=== PATIENT | female | born 1950 | race Caucasian/White ===

== ENCOUNTER → 2025-08-01 09:39 | Outpatient (BNVA) | payer MEDICARE, MEDICAID, SELFPAY | PROVIDERS: PCP Family Medicine; Referring Provider Family Medicine; Visit Provider Internal Medicine Pulmonary Disease | DX: J44.9 Chronic obstructive pulmonary disease, unspecified (principal); J84.10 Pulmonary fibrosis, unspecified; R04.2 Hemoptysis; Z87.891 Personal history of nicotine dependence; Z23 Encounter for immunization | CPT/HCPCS: 99205; 94618; 90471; 90653; 36415; 90684 ==

== ENCOUNTER 2025-08-01 17:52 | Outpatient (REF) | payer MEDICARE, MEDICAID, SELFPAY ==
[2025-08-01 13:10] LABS: Abs Immature Grans 0.02 10^3/uL (0.0-0.06); HCT 40.5 % (36.0-46.0); HGB 13.4 g/dL (11.2-15.7); Immature Grans % 0.5 %; MCH 33.6 pg (27.0-33.0); MCHC 33.1 % (32.0-36.0); MCV 102 fL (80-95); MPV 9.0 fL (8.0-11.0); Platelet Count 232 10^3/uL (130-400); RBC 3.99 10^6/uL (3.93-5.22); RDW 13.2 % (11.7-14.6); RDW-SD 49.1 fL; WBC 4.13 10^3/uL (4.4-10.8)
[2025-08-01 13:12] LABS: Anion Gap 9.3 mmol/L (3-11); BUN 18 mg/dL (7-18); CO2 27.7 mmol/L (21.0-32.0); Calcium 9.0 mg/dL (8.5-10.1); Chloride 103 mmol/L (98-107); Glucose 97 mg/dL (74-106); Potassium 4.9 mmol/L (3.5-5.1); Sodium 140 mmol/L (136-145)
== END 2025-08-01 17:53 | disposition home or self-care (01) ==
LOC: LBN 17:52
PROVIDERS: PCP Family Medicine; Visit Provider Internal Medicine Pulmonary Disease
DX: R04.2 Hemoptysis (principal)
CPT/HCPCS: 80048; 85025

== ENCOUNTER 2025-08-13 10:42 | Day surgery (SDC) | payer MEDICARE, MEDICAID, SELFPAY ==
[2025-08-13] VITALS (16 sets, daily range): BP systolic 101–144; BP diastolic 45–76; PULSE 67–83; RESP 16–28; TEMP 36.2–36.6; O2SAT 94–100; BMI 27.4
--- NOTE | 2025-08-13 10:59 | W.ANESPRE ---
General Info Date of Service Date Performed: 08/13/25 Height: 5 ft 2 in Weight: 68.039 kg Body Mass Index (BMI): 27.4 Surgical Procedure: Operation Date: 08/13/25 13:10 Proposed Procedure Side Surgeon p Ramon Arzate MD Meds Allergies and Home Medications Allergies Allergy/AdvReac Type Severity Reaction Status Date / Time diphenhydramine Allergy Intermediate Itching Verified 08/13/25 11:28 aspirin Allergy Unknown Other (See Verified 08/13/25 11:28 Comment) azithromycin Allergy Unknown Other (See Verified 08/13/25 11:28 Comment) cephalexin Allergy Unknown Other (See Verified 08/13/25 11:28 Comment) diclofenac Allergy Unknown Other (See Verified 08/13/25 11:28 Comment) penicillin V Allergy Unknown Other (See Verified 08/13/25 11:28 Comment) sulfamethoxazole (From Allergy Unknown Other (See Verified 08/13/25 11:28 Sulfamethoxazole-Trimethoprim) Comment) trimethoprim (From Allergy Unknown Other (See Verified 08/13/25 11:28 Sulfamethoxazole-Trimethoprim) Comment) prednisolone AdvReac Intermediate Other (See Verified 08/13/25 11:28 Comment) Home Medication Medication Instructions Recorded albuterol sulfate 90 mcg/actuation 2 puff inhalation 6XD PRN 07/25/25 aerosol inhaler (Ventolin HFA) umeclidinium 62.5 mcg-vilanterol 1 inh inhalation DAILY #60 ea 08/01/25 25 mcg/actuation powdr for inhalation (Anoro Ellipta) Current Visit Medications: Current Medications Generic Name Dose Route Start Last Admin Trade Name Freq PRN Reason Stop Dose Admin Albuterol Sulfate 3 mg 08/13/25 06:00 Albuterol 2.5 Mg/3 Ml Inh Soln Vial UPD 08/13/25 23:59 DIRECTED SEAN Ringer's Solution 1,000 mls @ 30 mls/hr 08/13/25 06:00 IV 08/13/25 23:59 [facility] IV Miscellaneous Supplies 1 each 08/13/25 06:00 Iv Access IV 08/13/25 23:59 DIRECTED SEAN Lidocaine HCl 2 ml 08/13/25 06:00 Lidocaine 2% Pres-Free 2 Ml Vial IH 08/13/25 23:59 DIRECTED [facility] Sodium Chloride 0 ml 08/13/25 06:00 Normal Saline Flush 10 Ml Syr IV 08/13/25 23:59 PRN PRN Sodium Chloride 0 ml 08/13/25 06:00 Normal Saline 10 Ml Vial IJ 08/13/25 23:59 DIRECTED PRN Sterile Water 0 ml 08/13/25 06:00 Water,Injection,Sterile 10 Ml Vial IJ 08/13/25 23:59 DIRECTED PRN PFSH Active Problems Active Problems: Problem Status Onset Code Hemoptysis Acute R04.2 Fibrotic lung diseases Acute J84.10 COPD (chronic obstructive pulmonary disease) Chronic J44.9 Screening for AAA (abdominal aortic aneurysm) Acute Z13.6 Osteoporotic compression fracture of vertebra Acute M80.88XA Encounter for lipid screening for cardiovascular disease Acute Z13.220, Z13.6 COPD exacerbation Acute J44.1 Breast cancer screening Acute Z12.39 Advanced chronic obstructive pulmonary disease Acute J44.9 Acute low back pain Acute M54.50 Medical History Medical History Tobacco user RSV infection Pneumonia Acute hypoxic respiratory failure Tobacco Smoking/Tobacco Use Status: Former Tobacco Use Passive smoking exposure: Yes Alcohol Alcohol Intake: never Substance Use Substance use: Never Substance use type: does not use Vital Signs and Lab Results Lab Results Complete Blood Count: WBC, (4.4-10.8) 4.13 10^3/uL L 08/01/25, 10:30 RBC, (3.93-5.22) 3.99 10^6/uL 08/01/25, 10:30 Hgb, (11.2-15.7) 13.4 g/dL 08/01/25, 10:30 Hct, (36.0-46.0) 40.5 % 08/01/25, 10:30 Plt Count, (130-400) 232 10^3/uL 08/01/25, 10:30 Complete Metabolic Panel: Sodium, (136-145) 140 mmol/L 08/01/25, 10:30 Potassium, (3.5-5.1) 4.9 mmol/L 08/01/25, 10:30 Chloride, (98-107) 103 mmol/L 08/01/25, 10:30 Carbon Dioxide, (21.0-32.0) 27.7 mmol/L 08/01/25, 10:30 BUN, (7-18) 18 mg/dL 08/01/25, 10:30 Creatinine, (0.55-1.02) 1.0 mg/dL 08/01/25, 10:30 Est GFR (CKD-EPI 2020), (mL/min/1.73m2) 59.49 08/01/25, 10:30 Calcium, (8.5-10.1) 9.0 mg/dL 08/01/25, 10:30 Glucose, (74-106) 97 mg/dL 08/01/25, 10:30 Anesthesia Assessment and Plan Anesthesia History Personal History: No History of Anesthesia Complications Family History: No Family History of Anesthesia Complications Exercise Tolerance Exercise Tolerance: Metabolic Equivalents<4 Pertinent Negatives Pertinent Negatives: No Symptoms of GERD (Recurrent GERD controlled with medication ) and No History of CVA/TIA (seizures a couple years ago ) Cardiac & Pulmonary Exam Cardiac Exam: Normal S1/S2 Heart Sounds Pulmonary Exam: Wheezing Present (expiratory ), No cough or Cold and Active Dry Cough (last couged up blood 2 weeks ago, a couple tablespoons ) Implantable Cardiac Device Does patient have a Pacemaker or an ICD?: No Airway Exam Known Difficult Airway: No Mallampati Class: 2 Mouth Opening: Normal (> 3cm) Thyromental Distance: Greater than 3 cm Neck Range of Motion: Full ROM Neck Circumference: Normal Teeth Condition: Removable Dentures/Plates Upper and Removable Dentures/Plates Lower ASA Classification ASA Score: ASA 3 Emergency Case?: No NPO Status NPO Status: NPO Clears >2 hours, Solids >8 hours Anesthesia Plan Resuscitation Status: Full Code Anesthesia Technique: General Anesthesia Airway Planned: LMA Monitors Used: Standard Monitors Preoperative Comments:: 75 to for bronch. Sig PMHx: COPD (albuterol, Anoro Ellipta), hemoptysis, Former smoker, no EtOH. PFTs: mild obstructive dz, no sig bronchodilator response. DLCO 40%.
[2025-08-13] MEDS: Lactated Ringers 1,000 ML 30 ML IV (11:53)
--- NOTE | 2025-08-13 12:15 | W.PM.OP ---
Operative Note Operative Note PRE-OP DIAGNOSIS: Hemoptysis POST-OP DIAGNOSIS: other (Hemoptysis, Right upper lobe endobronchial lesion) PROCEDURE: Flexible fiberoptic bronchoscopy, diagnostic SURGEON: Garrett Arzate ANESTHESIA TYPE: General LMA/ETT (Under the direction the anesthesiology team and as per anesthesia record) Refer to Anesthesia Record ESTIMATED BLOOD LOSS: 3 (mL) PATHOLOGY: other (Bronchoalveolar lavage was obtained in the [] and was sent for []. Biopsies taken: []) Procedure Description: The risks (including bleeding, respiratory failure, and pneumothorax), benefits, and alternatives of the procedure were discussed with the patient and consent was obtained. A Time Out was held and the above information confirmed. Following the induction of general anesthesia, the patient was ventilation through an 8.0 ET tube. The bronchoscope was passed through the ET tube and into the trachea. A full endobronchial examination was performed. There were no signs of recent bleeding, new or old blood products visualized. There was an endobronchial lesion/irregularity (picture taken) at the entrance to the anterior segment of the right upper lobe. Endobronchial brush biopsy and endobronchial forceps biopsies x3 were obtained on this lesion. There RML was normal, except for mild secretions. 50 mL of saline was injected into the medial segment of the right middle lobe and ~25 mL was aspirated. The fluid appeared opaque. The right lower lobe, left upper lobe and left lower lobes were unremarkable. The Patient was taken to the Endoscopy Recovery area in satisfactory condition. Date of Procedure: 08/13/25
[2025-08-13] MEDS: Albuterol 2.5 MG/3 ML INH SOLN VIAL 3 MG UPD (12:21)
[2025-08-13] MEDS: Lidocaine 1% Pres-Free 5 ML VIAL (12:49)
--- NOTE | 2025-08-13 12:50 | PAPNONF_PTH ---
PATIENT: Gureline Weiss LOC: [facility] U#:[id number] AGE/SX: 75/F ROOM: RE08/13/[address]: Garrett Arzate : 1950 BED: DIS: 08/13/2025 SPEC #: [id number] RECD: 08/13/25 17:47 STATUS: [facility] REQ #: [id number] ROSALIE: 08/13/25 12:[address]: Garrett Arzate DEPT: [facility] Cytology RECD BY: Chantel Darden Tissues: 1 - BODY FLUID CYTO(NOT S/U/N/EM)[facility] Procedures: BODY FLUID CYTO(NOT SPU/UR/NIP/ENDOM)[facility] Comments: [id number] (TV = 20 ml, SENT FRESH) (REFRIGERATED)
--- NOTE | 2025-08-13 12:50 | BRONCH_PTH ---
PATIENT: Guerline Weiss LOC: [facility] U#:[id number] AGE/SX: 75/F ROOM: RE08/13/[address]: Garrett Arzate : 1950 BED: DIS: 08/13/2025 SPEC #: [id number] RECD: 08/13/25 17:32 STATUS: IS[facility]URO RE #: [id number] ROSALIE: 08/13/25 12:[address]: Garrett Arzate DEPT: Surgical Specimen RECD BY: Chantel Darden Tissues: 1 - BRONCHUS BIOPSY 2 - BRONCHUS BIOPSY Procedures: GROSS AND MICRO LEVEL 4 Comments: [id number]
[2025-08-13] MEDS: Lidocaine 1% Pres-Free W/EPI 1/200,000 10 ML VIAL (13:05)
--- NOTE | 2025-08-13 13:44 | W.ANESPOSTOP ---
Postoperative Evaluation Date, Time and Location Date Performed: 08/13/25 Time Performed: 13:45 Patient Location: PACU Vital Signs Most Recent Imported Vital Signs: Most Recent Vital Signs Temp Pulse Resp BP Pulse Ox 36.5 C 80 24 101/64 100 08/13/25 13:32 08/13/25 13:35 08/13/25 13:35 08/13/25 13:31 08/13/25 13:35 Pain Score Most Recent Pain Score: Most Recent Pain Score Pain Level 2 08/13/25 13:37 Assessment Mental Status: Awake (Alert & Oriented to Patient Baseline) Airway and Respiratory Function: Patent airway with normal (patient baseline) respiratory exam Cardiovascular Function: Hemodynamically Stable Hydration Status: Adequately Hydrated Nausea & Vomiting: No Nausea or Vomiting Pain: Pt. Denies Any Pain Peripheral Nerve Block: Patient did not receive a nerve block
[2025-08-14 11:35] LABS: Eosinophils Fluid Relative 1 % ((See Note)); Lymphocytes Fluid Relative 15 % ((See Note)); Mono/Macrophage Fluid Relative 77 % ((See Note)); Neutrophils Fluid Relative 4 % ((See Note)); Other Cells Fluid Relative 3 % ((See Note))
== END 2025-08-13 15:01 | disposition home or self-care (01) ==
PROVIDERS: PCP Family Medicine; Visit Provider Internal Medicine Pulmonary Disease
PROC: 0BJ08ZZ Inspection of Tracheobronchial Tree, Via Natural or Artificial Opening Endoscopic (ICD-10-PCS; CPT 31622; principal; 2025-08-13 13:00)
DX: C34.11 Malignant neoplasm of upper lobe, right bronchus or lung (principal); R04.2 Hemoptysis; J44.9 Chronic obstructive pulmonary disease, unspecified
CPT/HCPCS: 31622; 80162; 87070; 87102; 87116; 87205; 87206; 88305; 88104; 94640; J2003; J2004; J2405; J2704; J7613

== ENCOUNTER → 2025-08-17 02:45 | Outpatient (CLI) | payer MEDICARE, MEDICAID, SELFPAY ==
--- NOTE | 2025-08-17 07:30 | DI.CT_ITS ---
Exam(s) CT CHEST W EXAM: CT CHEST W CLINICAL HISTORY: hemoptysis,R04.2 TECHNIQUE: Imaging Protocol: Axial computed tomography images with coronal and sagittal reformatted images were created and reviewed. Computer aided detection (CAD) was utilized. CONTRAST MATERIAL: Intravenous: Omnipaque 350 Contrast volume:70 ml. COMPARISON: CT CT CHEST WO CONTRAST from 06/14/[address] CHEST/ABD/PELVIS W/O CONT from 05/04/2025 CR XR SHOULDER MIN 2V LT from 05/16/2025 FINDINGS: Pulmonary parenchyma: Roughly 2 centimeter spiculated mass is noted in the right superior hilar region, in the right upper lobe. There are no additional suspicious masses. There is a stable circumscribed nodule noted associated with the right minor fissure. A stable nodules noted at the left lateral costophrenic angle. No consolidation. Stable biapical scarring. Emphysematous changes are also present, greater in the upper lobes, right greater than left. Tracheobronchial tree: No bronchiectasis or mucous plugging. Mediastinum and [place]: No dominant adenopathy or fluid collection. Pleura: No effusion. No pneumothorax. Heart: The heart is not dilated. coronary artery calcifications are seen. Aorta: Ascending thoracic aorta measures 4 cm.. Mild atherosclerotic changes. Pulmonary arteries: No gross evidence of emboli. Upper abdomen: No acute findings. Small hiatal hernia. Bones: Chronic appearing sternal deformity. Mild scoliosis anddegenerative changes in the spine. Stable mild compression deformities of T3 and T4. Soft tissues: Unremarkable. IMPRESSION: 2 centimeter spiculated mass in the right superior hilar region, suspicious for carcinoma. RADIATION DOSE DELIVERED: 80.51mGy.cm Total DLP DATA REPOSITORY: All CT scans at this facility are submitted to the National Radiology Data Registry (NRDR) Dose Index Registry (DIR) with the [employer] ([employer]). RADIATION OPTIMIZATION: All CT scans at this facility use at least one of these dose optimization techniques: automated exposure control; mA and/or kV adjustment per patient size (includes targeted exams where dose is matched to clinical indication); or iterative reconstruction.
[2025-08-17] MEDS: Normal Saline Flush 10 ML SYR IVP (10:36)
[2025-08-17] MEDS: Normal Saline - Diluent 50 ML VIAL IJ (10:36)
[2025-08-17] MEDS: Omnipaque 350 MG/ML 100 ML BTL IJ (10:37)
== END ==
PROVIDERS: PCP Family Medicine; Visit Provider Internal Medicine Pulmonary Disease
DX: R04.2 Hemoptysis (principal)
CPT/HCPCS: 71260; J3490

== ENCOUNTER → 2025-08-29 08:31 | Outpatient (BNVA) | payer MEDICARE, MEDICAID, SELFPAY | PROVIDERS: PCP Family Medicine; Referring Provider Family Medicine; Visit Provider Internal Medicine Pulmonary Disease | DX: J44.9 Chronic obstructive pulmonary disease, unspecified (principal); R04.2 Hemoptysis; C34.11 Malignant neoplasm of upper lobe, right bronchus or lung; Z87.891 Personal history of nicotine dependence | CPT/HCPCS: 99214 ==